=== PATIENT | female | born 1990 | race Two or more races ===

== ENCOUNTER 2021-07-19 11:15 | Emergency (ER) | payer OTHER ==
[~2021-07-19] VITALS: Ht 165.1 cm; Wt 53.5 kg
== END 2021-07-19 17:38 | disposition home or self-care (01) ==
LOC: ER 11:15
DX: R10.9 Unspecified abdominal pain (principal); R31.9 Hematuria, unspecified

== ENCOUNTER 2021-07-21 21:05 | Emergency (ER) | payer OTHER ==
[~2021-07-21] VITALS: Ht 160 cm; Wt 52.2 kg
[2021-07-22] MEDS ORDERED: PEPCID40 MG PO (08:17)
[2021-07-22] MEDS ORDERED: ZOFRAN4 MG PO (08:17)
[2021-07-22] MEDS ORDERED: PROTONIX40 MG PO (08:17)
== END 2021-07-22 08:54 ==
LOC: ER 21:05
DX: R10.13 Epigastric pain (principal)